=== PATIENT | female | born 1975 | race Caucasian/White ===

== ENCOUNTER 2024-02-11 21:20 | Emergency (ER) | payer BC ==
[2024-02-11 21:30] VITALS: RESP 18; TEMP 98.7; BMI 35.5
[2024-02-11] MEDS ORDERED: ACETAMINOPHEN INJECTION 100 ML IVPB ONE (23:19)
[2024-02-11] MEDS: ACETAMINOPHEN 1000 MG/100 ML BAG IVPB ONE (23:27)
[2024-02-11 23:36] LABS: HEMATOCRIT 43.5 % (32.4-45.2); HEMOGLOBIN 14.5 GM/dL (10.7-15.3); MCH 29.2 pg (25.7-33.7); MCHC 33.4 g/dl (32.0-36.0); MEAN CELL VOLUME 87.4 fl (80-96); MEAN PLT VOLUME 8.4 fl (7.5-11.1); PLATELET COUNT 367 10^3/uL (134-434); RBC 4.98 M/mm3 (3.60-5.2); RDW 12.8 % (11.6-15.6); WHITE BLOOD COUNT 13.8 K/mm3 (4.0-10.0)
[2024-02-11 23:41] LABS: INR 0.93 (0.83-1.09); PROTHROMBIN TIME (PATIENT) 10.7 SEC (9.7-13.0)
[2024-02-11 23:44] LABS: ACTIVATED PTT 36.3 SECONDS (25.2-36.5)
[2024-02-11 23:46] LABS: POTASSIUM 4.1 mmol/L (3.5-5.1)
[2024-02-11 23:49] LABS: BLOOD UREA NITROGEN 15.1 mg/dL (7-18); CALCIUM 9.2 mg/dL (8.5-10.1)
[2024-02-11 23:52] LABS: CREATININE 0.8 mg/dL (0.55-1.3)
[2024-02-11 23:54] LABS: TOT PROT 7.6 g/dl (6.4-8.2)
[2024-02-11 23:55] LABS: BILIRUBIN,TOTAL 0.4 mg/dL (0.2-1)
[2024-02-12 00:21] LABS: OVALOCYTE 1+; TEAR DROP CELLS 1+
[2024-02-12 00:23] LABS: PLATELET ESTIMATE ADEQUATE
[2024-02-12] MEDS: VALSARTAN 40 MG TABLET PO ONE (00:28)
[2024-02-12] MEDS ORDERED: VALSARTAN 80 MG TABLET ONE (00:31)
[2024-02-12 03:58] VITALS: BP 170/78; PULSE 82
== END 2024-02-12 04:02 | disposition home or self-care (01) ==
LOC: JER 21:20
PROC: 3E033NZ Introduction of Analgesics, Hypnotics, Sedatives into Peripheral Vein, Percutaneous Approach (ICD-10-PCS; principal; 2024-02-11)
DX: I10 Essential (primary) hypertension (principal); M54.2 Cervicalgia; R20.2 Paresthesia of skin; R51.9 Headache, unspecified; R20.0 Anesthesia of skin; Z20.822 Contact with and (suspected) exposure to COVID-19
CPT/HCPCS: 0241U-QW; 36415; 70496-TC; 70498-TC; 71046-TC-FY; 80053; 84484; 84703; 85025; 85610; 85730; 86850; 86900; 86901; 93005; 93010; 99285-25; J0131